=== PATIENT | female | born 1940 | race Caucasian/White ===

== ENCOUNTER 2020-10-02 14:01 | Inpatient (IN) | payer MEDICARE ==
--- NOTE | 2020-10-02 14:57 | EDM.PDOCBH ---
ED HPI GENERAL MEDICAL PROBLEM - General Chief Complaint: Behavioral/Psych Stated Complaint: SUICIDAL ATTEMPT Time Seen by Provider: 10/02/20 14:47 Source of Information: Reports: Patient, EMS, RN Notes Reviewed History Limitations: Reports: No Limitations - History of Present Illness INITIAL COMMENTS - FREE TEXT/NARRATIVE: 80-year-old female presents emergency department day via EMS for suicidal attempt. She admits to taking 20 ,25 mg Seroquel tablets at approximately 6 AM this morning. She states she wants to and no longer wants to live. When I asked her about this she added easily admits to it states she is still having problems with her thoughts she denies suicidal ideation at this time. - Related Data Allergies Allergy/AdvReac Type Severity Reaction Status Date / Time No Known Allergies Allergy Verified 10/02/20 14:10 Home Meds: Home Meds Aspirin [Halfprin] 81 mg PO DAILY 10/02/20 [History] Levothyroxine 125 mcg PO ACBREAKFAST 10/02/20 [History] Losartan [Cozaar] 50 mg PO DAILY 10/02/20 [History] QUEtiapine [SEROquel] 25 mg PO BEDTIME 10/02/20 [History] Rivaroxaban [Xarelto] 20 mg PO DAILY 10/02/20 [History] Sertraline [Zoloft] 100 mg PO DAILY 10/02/20 [History] atorvaSTATin [Lipitor] 80 mg PO BEDTIME 10/02/20 [History] carvediloL [Carvedilol] 3.125 mg PO BID 10/02/20 [History] Past Medical History HEENT History: Reports: Impaired Vision, Macular Degeneration Cardiovascular History: Reports: Blood Clots/VTE/DVT, High Cholesterol, Hypertension Respiratory History: Reports: PE RIVER GUIDE History: Reports: Psychiatric History: Reports: Depression Endocrine/Metabolic History: Reports: Hypothyroidism - Infectious Disease History Infectious Disease History: Reports: Chicken Pox, Measles, Shingles - Past Surgical History Cardiovascular Surgical History: Reports: Coronary Artery Stent GI Surgical History: Reports: Appendectomy, Cholecystectomy Female Surgical History: Reports: Hysterectomy Social & Family History - Tobacco Use Tobacco Use Status *Q: Never Tobacco User Second Hand Smoke Exposure: No - Caffeine Use Caffeine Use: Reports: Coffee - Recreational Drug Use Recreational Drug Use: No ED ROS GENERAL - Review of Systems Review Of Systems: See Below Constitutional: Reports: No Symptoms Respiratory: Reports: No Symptoms Cardiovascular: Reports: No Symptoms GI/Abdominal: Reports: No Symptoms Psychiatric: Reports: Depression, Suicidal Ideation ED EXAM, BEHAVIORAL HEALTH - Physical Exam Exam: See Below Exam Limited By: No Limitations General Appearance: Alert, No Apparent Distress Respiratory/Chest: No Respiratory Distress, Lungs Clear, Normal Breath Sounds, No Accessory Muscle Use, Chest Non-Tender Cardiovascular: Regular Rate, Rhythm, No Murmur GI/Abdominal: Soft, Non-Tender Psychiatric: Alert, Depressed Mood, Suicidal Thoughts #1 Interpretation EKG Date: 10/02/20 Time: 17:14 Rhythm: NSR [place]: Normal P-Wave: Present QRS: Normal ST-T: Normal QT: Normal Comparison: NA - No Prior EKG COURSE, BEHAVIORAL HEALTH COMP - Course Vital Signs: Last Vital Signs Temp 97.6 F 10/02/20 14:24 Pulse 75 10/02/20 14:48 Resp 11 L 10/02/20 14:48 BP 194/90 H 10/02/20 14:48 Pulse Ox 97 10/02/20 14:48 Orders, Labs, Meds: Active Orders 24 hr Category Date Time Status EKG Documentation Completion [RC] ASDIRECTED Care 10/02/20 14:54 Active DRUG SCREEN, URINE [URCHEM] Urgent Lab 10/02/20 14:54 Ordered Lactated Ringers [Ringers, Lactated] 1,000 ml Med 10/02/20 15:00 Active IV ASDIRECTED EKG 12 Lead [EK] Urgent Ther 10/02/20 14:54 Ordered Medication Orders Lactated Ringer's (Ringers, Lactated) 1,000 mls @ 125 mls/hr IV ASDIRECTED BRE Last Admin: 10/02/20 15:23 Dose: 125 mls/hr Documented by: AMPARO Laboratory Tests 10/02/20 10/02/20 10/02/20 Range/Units 16:45 16:45 16:45 WBC 6.6 (4.5-11.0) K/uL RBC 4.04 (3.30-5.50) M/uL Hgb 13.8 (12.0-15.0) g/dL Hct 40.8 (36.0-48.0) % MCV 101 H (80-98) fL MCH 34 H (27-31) pg MCHC 34 (32-36) % Plt Count 219 (150-400) K/uL Neut % (Auto) 68.0 H (36-66) % Lymph % (Auto) 17.7 L (24-44) % Centre % (Auto) 9.4 H (2-6) % Eos % (Auto) 4.4 H (2-4) % Baso % (Auto) 0.5 (0-1) % Sodium 145 (140-148) mmol/L Potassium 3.5 L (3.6-5.2) mmol/L Chloride 108 (100-108) mmol/L Carbon Dioxide 26 (21-32) mmol/L Anion Gap 14.5 H (5.0-14.0) mmol/L BUN 20 H (7-18) mg/dL Creatinine 0.9 (0.6-1.0) mg/dL Est Cr Clr Drug Dosing 49.29 mL/min Estimated GFR (MDRD) > 60 (>60) Glucose 165 H (74-106) mg/dL Calcium 8.8 (8.5-10.1) mg/dL Total Bilirubin 1.9 H (0.2-1.0) mg/dL AST 17 (15-37) U/L ALT 25 (12-78) U/L Alkaline Phosphatase 74 (46-116) U/L Total Protein 6.2 L (6.4-8.2) g/dL Albumin 3.6 (3.4-5.0) g/dL Globulin 2.6 (2.3-3.5) g/dL Albumin/Globulin Ratio 1.4 (1.2-2.2) Salicylates (2.0-20.0) mg/dL Acetaminophen (10.0-30.0) ug/mL Ethyl Alcohol < 3 mg/dL 10/02/20 10/02/20 Range/Units 16:45 16:45 WBC (4.5-11.0) K/uL RBC (3.30-5.50) M/uL Hgb (12.0-15.0) g/dL Hct (36.0-48.0) % MCV (80-98) fL MCH (27-31) pg MCHC (32-36) % Plt Count (150-400) K/uL Neut % (Auto) (36-66) % Lymph % (Auto) (24-44) % Centre % (Auto) (2-6) % Eos % (Auto) (2-4) % Baso % (Auto) (0-1) % Sodium (140-148) mmol/L Potassium (3.6-5.2) mmol/L Chloride (100-108) mmol/L Carbon Dioxide (21-32) mmol/L Anion Gap (5.0-14.0) mmol/L BUN (7-18) mg/dL Creatinine (0.6-1.0) mg/dL Est Cr Clr Drug Dosing mL/min Estimated GFR (MDRD) (>60) Glucose (74-106) mg/dL Calcium (8.5-10.1) mg/dL Total Bilirubin (0.2-1.0) mg/dL AST (15-37) U/L ALT (12-78) U/L Alkaline Phosphatase (46-116) U/L Total Protein (6.4-8.2) g/dL Albumin (3.4-5.0) g/dL Globulin (2.3-3.5) g/dL Albumin/Globulin Ratio (1.2-2.2) Salicylates 0.0 L (2.0-20.0) mg/dL Acetaminophen 0.0 L (10.0-30.0) ug/mL Ethyl Alcohol mg/dL Medications Generic Name Dose Route Start Last Admin Trade Name Freq PRN Reason Stop Dose Admin Lactated Ringer's 1,000 mls @ 125 mls/hr 10/02/20 15:00 10/02/20 15:23 Ringers, Lactated IV 125 mls/hr ASDIRECTED BRE Administration Departure - Departure Time of Disposition: 17:16 Disposition: Admitted As Inpatient 67 Condition: Fair Clinical Impression: Suicidal behavior with attempted self-injury - Discharge Information Referrals: PCP,None [Primary Care Provider] - Forms: ED Department Discharge Sepsis Event Note (ED) - Evaluation Sepsis Screening Result: No Definite Risk - Focused Exam Vital Signs: Vital Signs Temp Pulse Resp BP Pulse Ox 10/02/20 14:48 75 11 L 194/90 H 97 10/02/20 14:33 77 16 184/88 H 97 10/02/20 14:24 97.6 F 83 17 143/79 H 95 10/02/20 14:17 76 16 154/76 H 96 10/02/20 14:08 97.6 F 83 17 143/79 H 95 - My Orders Last 24 Hours: My Active Orders 10/02/20 14:54 EKG Documentation Completion [RC] ASDIRECTED DRUG SCREEN, URINE [URCHEM] Urgent EKG 12 Lead [EK] Urgent 10/02/20 15:00 Lactated Ringers [Ringers, Lactated] 1,000 ml IV ASDIRECTED - Assessment/Plan Last 24 Hours: My Active Orders 10/02/20 14:54 EKG Documentation Completion [RC] ASDIRECTED DRUG SCREEN, URINE [URCHEM] Urgent EKG 12 Lead [EK] Urgent 10/02/20 15:00 Lactated Ringers [Ringers, Lactated] 1,000 ml IV ASDIRECTED Plan: Assessment Acuity = acute Site and laterality = suicidal attempt Etiology = intentional drug ingestion Seroquel Manifestations = none Location of injury = Home Lab values = CBC unremarkable CMP reveals a total bilirubin elevated 1.9 consistent hyperbilirubinemia acetaminophen salicylic acid both negative alcohol was negative EKG reveals no acute process Plan Call discussed case hospitalist on-call at [phone] can agreed to come evaluate patient emergency department for admission This note was dictated using [employer] voice recognition software please call with any questions on syntax or grammar.
[2020-10-02] MEDS: Lactated Ringers 1,000 ML IV SCH ×2 (15:23→23:52)
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
[2020-10-02] MEDS ORDERED: ALPRAZolam 0.5 MG Tab PO PRN (19:47)
[2020-10-02] MEDS ORDERED: QUEtiapine 25 MG Tab PO SCH (21:00)
[2020-10-02] MEDS ORDERED: atorvaSTATin 20 MG Tab ONE ×2 (21:17→21:19)
[2020-10-02] MEDS: Rivaroxaban 10 MG Tab PO SCH (21:24)
[2020-10-02] MEDS: atorvaSTATin 20 MG Tab PO SCH (21:24)
[2020-10-02] MEDS: Aspirin 81 MG Tab.EC PO SCH (21:25)
[2020-10-02] MEDS: Carvedilol 3.125 MG Tab PO SCH (21:25)
[2020-10-03] MEDS ORDERED: Levothyroxine 50 MCG Tab PO SCH (07:30)
[2020-10-03] MEDS: Levothyroxine 25 MCG Tab PO SCH (08:20)
[2020-10-03] MEDS: Levothyroxine 100 MCG Tab PO SCH (08:20)
[2020-10-03] MEDS: Losartan 50 MG Tab PO SCH (08:41)
[2020-10-03] MEDS: Carvedilol 3.125 MG Tab PO SCH ×2 (08:41→20:26)
[2020-10-03] MEDS: Sertraline 50 MG Tab PO SCH (08:42)
[2020-10-03] MEDS ORDERED: Aspirin 81 MG Tab.EC PO SCH (09:00)
[2020-10-03] MEDS ORDERED: Rivaroxaban 10 MG Tab PO SCH (09:00)
[2020-10-03] MEDS ORDERED: Carvedilol 3.125 MG Tab PO SCH (09:30)
[2020-10-03] MEDS ORDERED: ALPRAZolam 0.5 MG Tab PO SCH (10:00)
[2020-10-03] MEDS ORDERED: Carvedilol 3.125 MG Tab PO ONE (10:30)
[2020-10-03] MEDS: ALPRAZolam 0.5 MG Tab PO SCH ×3 (14:01→21:49)
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
[2020-10-03] MEDS: Aspirin 81 MG Tab.EC PO SCH (20:26)
[2020-10-03] MEDS: Rivaroxaban 10 MG Tab PO SCH (20:26)
[2020-10-03] MEDS: atorvaSTATin 20 MG Tab PO SCH (20:27)
[2020-10-04] MEDS: ALPRAZolam 0.5 MG Tab PO SCH ×6 (01:25→21:20)
[2020-10-04] MEDS: Levothyroxine 100 MCG Tab PO SCH (07:55)
[2020-10-04] MEDS: Levothyroxine 25 MCG Tab PO SCH (07:55)
[2020-10-04] MEDS: Losartan 50 MG Tab PO SCH (09:31)
[2020-10-04] MEDS: Carvedilol 3.125 MG Tab PO SCH ×2 (09:33→20:44)
[2020-10-04] MEDS: Sertraline 50 MG Tab PO SCH (09:33)
[2020-10-04] MEDS ORDERED: LORazepam 2 MG/ML SDV IVPUSH ONE (10:33)
[2020-10-04] MEDS ORDERED: LORazepam 2 MG/ML SDV IVPUSH PRN (16:23)
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
[2020-10-04] MEDS: Aspirin 81 MG Tab.EC PO SCH (20:43)
[2020-10-04] MEDS: Rivaroxaban 10 MG Tab PO SCH (20:43)
[2020-10-04] MEDS: atorvaSTATin 20 MG Tab PO SCH (20:43)
[2020-10-05] MEDS: ALPRAZolam 0.5 MG Tab PO SCH ×6 (02:10→22:33)
[2020-10-05] MEDS: Levothyroxine 100 MCG Tab PO SCH (08:13)
[2020-10-05] MEDS: Levothyroxine 25 MCG Tab PO SCH (08:13)
[2020-10-05] MEDS: Carvedilol 3.125 MG Tab PO SCH ×2 (08:28→20:26)
[2020-10-05] MEDS: Losartan 50 MG Tab PO SCH (08:29)
[2020-10-05] MEDS: Sertraline 50 MG Tab PO SCH (08:29)
[2020-10-05] MEDS: Nitrofurantoin Monohydrate/Macrocrystalline 100 MG Cap PO SCH ×2 (08:33→20:28)
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
[2020-10-05] MEDS: atorvaSTATin 20 MG Tab PO SCH (20:25)
[2020-10-05] MEDS: Aspirin 81 MG Tab.EC PO SCH (20:25)
[2020-10-05] MEDS: Rivaroxaban 10 MG Tab PO SCH (20:25)
[2020-10-05] MEDS: QUEtiapine 25 MG Tab PO SCH (20:25)
[2020-10-06] MEDS: ALPRAZolam 0.5 MG Tab PO SCH ×6 (01:01→21:10)
[2020-10-06] MEDS: Levothyroxine 100 MCG Tab PO SCH (08:10)
[2020-10-06] MEDS: Levothyroxine 25 MCG Tab PO SCH (08:10)
[2020-10-06] MEDS: Nitrofurantoin Monohydrate/Macrocrystalline 100 MG Cap PO SCH ×2 (08:15→21:00)
[2020-10-06] MEDS: Carvedilol 3.125 MG Tab PO SCH ×2 (08:15→20:59)
[2020-10-06] MEDS: Losartan 50 MG Tab PO SCH (08:17)
[2020-10-06] MEDS: Sertraline 50 MG Tab PO SCH (08:17)
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
[2020-10-06] MEDS: QUEtiapine 25 MG Tab PO SCH (20:59)
[2020-10-06] MEDS: Aspirin 81 MG Tab.EC PO SCH (20:59)
[2020-10-06] MEDS: Rivaroxaban 10 MG Tab PO SCH (21:01)
[2020-10-06] MEDS: atorvaSTATin 20 MG Tab PO SCH (21:01)
[2020-10-07] MEDS: ALPRAZolam 0.5 MG Tab PO SCH ×3 (02:57→10:54)
[2020-10-07] MEDS: Losartan 50 MG Tab PO SCH (08:14)
[2020-10-07] MEDS: Carvedilol 3.125 MG Tab PO SCH (08:14)
[2020-10-07] MEDS: Sertraline 50 MG Tab PO SCH (08:15)
[2020-10-07] MEDS: Levothyroxine 100 MCG Tab PO SCH (08:15)
[2020-10-07] MEDS: Levothyroxine 25 MCG Tab PO SCH (08:15)
[2020-10-07] MEDS: Nitrofurantoin Monohydrate/Macrocrystalline 100 MG Cap PO SCH (08:15)
[2020-10-07] MEDS ORDERED: ALPRAZolam 0.25 MG Tab PO ONE (12:08)
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
== END 2020-10-07 14:15 | DRG 918 ==
LOC: JP.ED 14:01 → JP.ICU 17:40
PROVIDERS: ADMIT Internal Medicine; ATTEND Hospitalist
DX: T43.592A Poisoning by other antipsychotics and neuroleptics, intentional self-harm, initial encounter (principal); N39.0 Urinary tract infection, site not specified; F33.2 Major depressive disorder, recurrent severe without psychotic features; F41.9 Anxiety disorder, unspecified; Z62.810 Personal history of physical and sexual abuse in childhood; F43.10 Post-traumatic stress disorder, unspecified; H54.7 Unspecified visual loss; H35.30 Unspecified macular degeneration; E78.00 Pure hypercholesterolemia, unspecified; E78.5 Hyperlipidemia, unspecified; I10 Essential (primary) hypertension; Z86.711 Personal history of pulmonary embolism; Z86.718 Personal history of other venous thrombosis and embolism; F32.9 Major depressive disorder, single episode, unspecified; E03.9 Hypothyroidism, unspecified; Z95.5 Presence of coronary angioplasty implant and graft; Z79.01 Long term (current) use of anticoagulants; Z79.82 Long term (current) use of aspirin; Z90.49 Acquired absence of other specified parts of digestive tract; Z90.710 Acquired absence of both cervix and uterus; Z20.822 Contact with and (suspected) exposure to COVID-19; Z79.890 Hormone replacement therapy; Z79.899 Other long term (current) drug therapy
CPT/HCPCS: 36415; 80053; 80143; 80179; 80307; 85025; 93010; 99285 ×2; J7120; 80048; 80305-QW; 81001; 82607; 85027; 93005; 97161-GP; A9270-GY; J2060; U0002